=== PATIENT | female | born 1990 | race Caucasian/White ===

== ENCOUNTER 2025-01-09 19:02 | Emergency (ER) | payer OTHER, SELFPAY ==
--- OUTSIDE RECORDS SUMMARY | 2025-01-09 19:05 | XMS_ITS | Encounter Summary ---
Author Organization [facility] Address [address] [place] [id number] Care Team Providers Care Catering Director Name Role Phone Dina Parkinson APRN C.N.PDerrell, M.S. Primary Care Pr ovider Reason for Referral * Outpatient (Routine) - Closed Specialty Diagnoses / Procedures Referred By Yoel coello Referred To Contact Diagnoses Lump In Right Breast Subareolar Procedures BI Breast Diagnostic Bilateral with Tomosynthesis BI Breast Diagnostic Right with Tomosynthesis Dina Parkinson APRN, C.N.P., M.S. [address] [place] [phone] Phone: tel: fax: [facility] Referral ID Status Reason Start Date Expiration Date Visits Re quested Visits Authorized [id number] Closed 11/26/2024 02/26/2026 1 1 STICS SUPPORT Reason for Visit * Outpatient (Routine) - Closed Specialty Diagnoses / Procedures Referred By Yoel coello Referred To Contact Diagnoses Lump In Right Breast Subareolar Procedures BI Breast Diagnostic Bilateral with Tomosynthesis BI Breast Diagnostic Right with Tomosynthesis Dina Parkinson APRN, C.N.P., M.S. [address] [place] [phone] Phone: tel: fax: [facility] Referral ID Status Reason Start Date Expiration Date Visits Re quested Visits Authorized [id number] Closed 11/26/2024 02/26/2026 1 1 Encounter Details Date Type Department Care Team (Latest Contact Info) Description 12/02/2024 6:55 AM LOGISTICS SUPPORT - 12/02/2024 7:35 AM LOGISTICS SUPPORT Hospital Encounter Department of Radiology in [place], [place] [address] [place] [address] Dina Pariknson APRN, C.N.P., M.S. [address] [place] [phone] Lump In Right Breast Subareolar Discharge Disposition: Home or Self Care Social History Tobacco Use Types Packs/Day Years Used Date Smoking Tobacco: Never Smokeless Tobacco: Never Alcohol Use Standard Drinks/Week Comments Yes 2 (1 standard drink = 0.6 oz pur e alcohol) Humiliation, Afraid, Rape, and Kick questionnair e Answer Date Recorded Within the last year, have y ou been afraid of your partner or ex-partner? No 03/10/2023 Within the last year, have y ou been humiliated or emotionally abused in other ways by your partner or ex-partner? No Within the last year, have y ou been kicked, hit, slapped, or otherwise physically hurt by your partner or ex-partner? No 03/10/2023 Within the last year, have y ou been raped or forced to have any kind of sexual activity by your partner or ex-partner? No 03/10/2023 Social Connection and Isolat ion Panel [NHANES] Answer Date Recorded In a typical week, how many times do you talk on the phone with family, friends, or neighbors? Twice a week 06/13/2021 How often do you get togethe r with friends or relatives? Once a week 06/13/2021 How often do you attend chur or rastafari services? More than 4 times per year 06/13/2021 Do you belong to any clubs o r organizations such as buddhism groups, unions, fraternal or athletic groups, or school groups? Yes 06/13/2021 How often do you attend meet ings of the clubs or organizations you belong to? More than 4 times per year 06/13/2021 Are you , , di vorced, , never , or living with a partner? 06/13/2021 AUDIT-C Answer Date Recorded Q1: How often do you have a drink containing alc ohol? 2-3 times a week 06/13/2021 Q2: How many drinks containi ng alcohol do you have on a typical day when you are drinking? 1 or 2 06/13/2021 Q3: How often do you have si x or more drinks on one occasion? Never 06/13/2021 Overall Financial Resource Strain (CARDIA) Answe r Date Recorded How hard is it for you to pa y for the very basics like food, housing, medical care, and heating? Not very hard 03/10/2023 PHQ-2 Answer Date Recorded PHQ-2 Score 0 03/13/2023 [facility] - Occupational Stress Questionnaire Answer Date Recorded Do you feel stress - tense, restless, nervous, or anxious, or unable to sleep at night because your mind is troubled all the time - these days? To some extent 06/13/2021 Exercise Vital Sign Answer Date Recorde d On average, how many days pe r week do you engage in moderate to strenuous exercise (like a brisk walk)? 4 days 03/10/2023 On average, how many minutes do you engage in exercise at this level? 20 min 03/10/2023 Hunger Vital Sign Answer Date Recorded Within the past 12 months, y ou worried that your food would run out before you got the money to buy more. Never true 03/10/20 23 Within the past 12 months, t he food you bought just didn't last and you didn't have money to get more. Never true 03/10/2023 PRAPARE - Transportation Answer Date Re corded In the past 12 months, has l ack of transportation kept you from medical appointments or from getting medications? No 02/27 In the past 12 months, has l ack of transportation kept you from meetings, work, or from getting things needed for daily living? No 03/10/2023 Depression Answer Date Recor ded PHQ-9 Total Score (max 27) 1 03/13 Nutrition Answer Date Recorded On average, how many serving s of fruits and vegetables do you eat per day (serving size is equal to 1 cup or approximately the size of a tennis ball)? 3-5 03/10/2023 Dental Answer Date Recorded Dental: Regular Dentist Yes 10/10/19 Employment Answer Date Recorded Employment status Employed and actively working without restrictions 03/10/2023 Housing Stability Answer Date Recorded What is your living situation today? I have a [facility] place to live 03/10/2023 Education Answer Date Recorded What is the highest level of school you have completed or the highest degree you have received? Bachelor's degree (e.g., BA, AB, BS) 04/08/2019 Comments No Sex and Gender Information Value Date Recorded Sex Assigned at Female 02/25/2018 1:35 PM CDT Legal Sex Female 2:16 PM LOGISTICS SUPPORT Gender Identity Female 02/25/2018 1:35 PM CDT Sexual Orientation Straight 02/25/2018 1: 35 PM CDT documented as of this encounter Medications at Time of Discharge [id number]-asb- C (MOVIPREP) 100-7.5-2.691 gram per packet Drink 1st portion of prep at 6 PM the evening before. 2nd portion must be started 3 hours before and finished 2 hours prior to report time 1 kit 07/23/2023 documented as of this encounter Plan of Treatment Not on file documented as of this encounter Procedures Procedure Name Priority Date/Time Associated Diagnosis Comments BI BREAST DIAGNOSTIC BILATERAL WITH TOMOSYNTHESIS RAD - Routine (most inpatients and all outpatients) 12/02/2024 7:31 AM LOGISTICS SUPPORT Lump In Right Breast Subareolar documented in this encounter Results * BI Breast Diagnostic Bilateral with Tomosynthesis (12/02/2024 7:31 AM LOGISTICS SUPPORT) Anatomical Region Laterality Modality Breast, Breast Imaging RST L OS, Breast Imaging ARZ LOS, Breast Imaging FLA LOS Bilateral Mammography Impressions 12/02/2024 8:14 AM LOGISTICS SUPPORT No mammographic or sonographic findings of malignancy. The palpable area of concern may correspond to a prominent ridge of normal breast tissue. RECOMMENDATION: Clinical Management Findings and recommendations were discussed with the patient by Dr. Almeida. ASSESSMENT: BI-RADS: 1: Negative. Narrative 12/02/2024 8:14 AM LOGISTICS SUPPORT EXAM: BI BREAST DIAGNOSTIC BILATERAL WITH TOMOSYNTHESIS, BI ULTRASOUND BREAST FOCUSED RIGHT INDICATION: Palpable lump COMPARISON: No priors exams were available for comparison. DENSITY: c. The breast(s) are heterogeneously dense, which may obscure small masses. FINDINGS: MAMMOGRAPHY: A palpable skin marker indicates the location of the palpable area of concern in the outer right breast. No suspicious masses, calcifications, or architectural distortion in either breast. ULTRASOUND: Targeted ultrasound of the right breast was performed and the patient directed area of palpable concern. Imaging of the outer right breast was performed. Risk Developer normal images were saved at 10:00, 1 cm from the nipple demonstrating normal fibroglandular breast tissue. There is a prominent ridge of normal breast tissue extending up to the skin, which may account for the palpable finding. No suspicious sonographic findings. On physical examination, the palpable area of concern is soft and mobile. Procedure Note Beny Almeida M.D. - 12/02/2024 EXAM: BI BREAST DIAGNOSTIC BILATERAL WITH TOMOSYNTHESIS, BI ULTRASOUNDBREAST FOCUSED RIGHT INDICATION: Palpable lump COMPARISON: No priors exams were available for comparison. DENSITY: c. The breast(s) are heterogeneously dense, which may obscuresmall masses. FINDINGS: MAMMOGRAPHY: A palpable skin marker indicates the location of the palpablearea of concern in the outer right breast. No suspicious masses,calcifications, or architectural distortion in either breast. ULTRASOUND: Targeted ultrasound of the right breast was performed and thepatient directed area of palpable concern. Imaging of the outer rightbreast was performed. Risk Developer normal images were saved at 10:00, 1cm from the nipple demonstrating normal fibroglandular breast tissue. There is a prominent ridge of normalbreast tissue extending up to the skin, which may account for the palpablefinding. No suspicious sonographic findings. On physical examination, thepalpable area of concern is soft and mobile. IMPRESSION: No mammographic or sonographic findings of malignancy. The palpable areaof concern may correspond to a prominent ridge of normal breast tissue. RECOMMENDATION: Clinical Management Findings and recommendations were discussed with the patient by . ASSESSMENT: BI-RADS: 1: Negative. us Dina Parkinson APRN, C.N.P., M.S. IMG BI PROCEDURE S Final Result documented in this encounter Visit Diagnoses Diagnosis Lump In Right Breast Subareolar documented in this encounter Additional Health Concerns Assessment Noted Time PHQ-9 Depression Total Score: 1 03/13/20 23 1:33 PM CDT documented as of this encounter Care Teams Catering Director Relationship Specialty Start Date End Date Dina Parkinson APRN C.N.Naty, M.S. [address] [place] [phone] PCP - General Internal Medicine 06/15/16 documented as of this encounter
--- OUTSIDE RECORDS SUMMARY | 2025-01-09 19:05 | XMS_ITS | Encounter Summary ---
Author Organization [facility] Address [address] [place] [id number] Care Team Providers Care Dressmaker Garment Fitter Name Role Phone Dina Parkinson APRN, C.N.PDerrell, M.S. Primary Care Pr ovider Reason for Referral * Outpatient (Routine) - Closed Specialty Diagnoses / Procedures Referred By Contac t Referred To Contact Diagnoses Lump In Right Breast Subareolar Procedures BI Ultrasound Breast Focused Right Dina Parkinson APRN, C.N.P., M.S. [address] [place] [phone] Phone: tel: fax: [facility] Referral ID Status Reason Start Date Expiration Date Visits Re quested Visits Authorized [id number] Closed 12/02/2024 03/04/2026 1 1 X RAY DEVELOPER Reason for Visit * Outpatient (Routine) - Closed Specialty Diagnoses / Procedures Referred By Contac t Referred To Contact Diagnoses Lump In Right Breast Subareolar Procedures BI Ultrasound Breast Focused Right Dina Parkinson APRN C.N.P., M.S. [address] [place] [phone] Phone: tel: fax: [facility] Referral ID Status Reason Start Date Expiration Date Visits Re quested Visits Authorized [id number] Closed 12/02/2024 03/04/2026 1 1 Encounter Details Date Type Department Care Team (Latest Contact Info) Description 12/02/2024 7:36 AM X RAY DEVELOPER - 12/02/2024 11:59 PM X RAY DEVELOPER Hospital Encounter Department of Radiology in [place], [place] [address] [place] [address] Dina Parkinson APRN, C.N.P., M.S. [address] [place] [address] Lump In Right Breast Subareolar Discharge Disposition: [...] 06/13/2021 How often do you attend chur ch or lutheran services? More than 4 times per year 06/13/2021 Do you belong to any clubs o r organizations such as mandaen groups, unions, fraternal or athletic groups, or [...] Answer Date Recorded PHQ-2 Score 0 03/13/2023 [facility] - Occupational Stress Questionnaire Answer Date [...] your living situation today? I have a [facility] place to live 03/10/2023 Education Answer Date Recorded What is the highest level of school you have completed or the highest degree you have received? Bachelor's degree (e.g., BA, AB, BS) 04/08/2019 Comments No Sex and Gender Information Value Date Recorded Sex Assigned at Female 02/25/2018 1:35 PM CDT Legal Sex Female 2:16 PM X RAY DEVELOPER Gender Identity Female 02/25/2018 1:35 PM CDT Sexual Orientation Straight 02/25/2018 1: 35 PM CDT documented as of this encounter Medications at Time of Discharge [id number]-asb- C (MOVIPREP) 100-7.5-2.691 gram per packet Drink 1st portion of prep at 6 PM the evening before. 2nd portion must be started 3 hours before and finished 2 hours prior to report time 1 kit 07/23/2023 documented as of this encounter Plan of Treatment Not on file documented as of this encounter Procedures Procedure Name Priority Date/Time Associated Diagnosis Comments BI ULTRASOUND BREAST FOCUSED RIGHT RAD - Routine (most inpatients and all outpatients) 12/02/2024 7:58 AM X RAY DEVELOPER Lump In Right Breast Subareolar documented in this encounter Results * BI Ultrasound Breast Focused Right (12/02/2024 7:58 AM X RAY DEVELOPER) Anatomical Region Laterality Modality Breast, Breast Imaging RST L OS, Breast Imaging ARZ LOS, Breast Imaging FLA LOS Right Ultrasound Impressions 12/02/2024 8:14 AM X RAY DEVELOPER No mammographic or sonographic findings of malignancy. The palpable area of concern may correspond to a prominent ridge of normal breast tissue. RECOMMENDATION: Clinical Management Findings and recommendations were discussed with the patient by Dr. Almeida. ASSESSMENT: BI-RADS: 1: Negative. Narrative 12/02/2024 8:14 AM X RAY DEVELOPER EXAM: BI BREAST DIAGNOSTIC BILATERAL WITH TOMOSYNTHESIS, [...] of the outer right breast was performed. Hand Ii Thermal Cutter normal images were saved at 10:00, 1 [...] Imaging of the outer rightbreast was performed. Hand Ii Thermal Cutter normal images were saved at 10:00, 1cm [...] documented as of this encounter Care Teams Dressmaker Garment Fitter Relationship Specialty Start Date End Date Dina Parkinson APRN, C.N.P., M.S. [address] [place] [phone] PCP - General Internal Medicine 06/15/16 documented as of this encounter
--- OUTSIDE RECORDS SUMMARY | 2025-01-09 19:06 | XMS_ITS | Encounter Summary ---
Author Organization [facility] Address [address] [place] [address] Care Team Providers Care Casino Worker Name Role Phone Dina Parkinson APRN, C.N.P., M.S. Primary Care Pr ovider Encounter Details Date Type Department Care Team (Late st Contact Info) Description 08/01/2014 Historical Ophthalmology RST OPH Dorene Bronson O.D. [address] [place] [phone] Social History Tobacco Use Types Packs/Day Years Used Date Smoking Tobacco: Never Assessed Comments Unknown Sex and Gender Information Value Date Recorded Sex Assigned at Female 02/25/2018 1:35 PM CDT Legal Sex Female 2:16 PM INSPECTOR TIMERS Gender Identity Female 02/25/2018 1:35 PM CDT Sexual Orientation Straight 02/25/2018 1: 35 PM CDT documented as of this encounter Progress Notes * Dorene Park O.D. - 08/01/2014 5:53 PM CST Contact Lens Exam MULTI-VISIT DOCUMENT This document contains multiple patient visits and is available for review in Document Viewer. CDM Reports - EYECL Id: [id number] Status: Fnl documented in this encounter Plan of Treatment Not on file documented as of this encounter Visit Diagnoses Not on filedocumented in this encounter Additional Health Concerns Infection Onset Date Last Indicated Resolved Time COVID19 Pending 04/13/2020 04/13/2020 04/14/2020 7 :09 PM CDT COVID19 Pending 06/09/2020 06/09/2020 06/10/2020 6 :25 PM CDT COVID19 Pending 06/02/2021 06/02/2021 06/02/2021 6 :11 PM CDT COVID19 Pending 08/22/2021 08/22/2021 08/22/2021 1 1:19 PM INSPECTOR TIMERS COVID19 Pending 08/27/2021 08/27/2021 08/27/2021 4 :33 PM INSPECTOR TIMERS COVID19 Pending 10/06/2021 10/06/2021 10/06/2021 8 :50 PM INSPECTOR TIMERS COVID19 10/06/2021 10/06/2021 10/26/2021 5:46 AM INSPECTOR TIMERS Assessment Noted Time PHQ-9 Depression Total Score: 0 02/27/20 13 10:59 AM CDT documented as of this encounter Care Teams Casino Worker Relationship Specialty Start Date End Date Dina Parkinson APRN, C.N.P., M.S. [address] [place] [phone] PCP - General Internal Medicine 06/15/16 documented as of this encounter
--- OUTSIDE RECORDS SUMMARY | 2025-01-09 19:06 | XMS_ITS | Clinical Summary ---
Author Organization [facility] Address [address] [place] [address] Care Team Providers Care Ct Tech Name Role Phone Dina Parkinson APRN, C.N.P., M.S. Primary Care Pr ovider Source Comments Patient records contain information from all sites at [facility]. For routine questions regarding patient records, call [phone] during business hours, M-F 8:00 AM - 5:00 PM Central Time. Record requests for emergency care only can be directed to [phone] at any time.[facility] Allergies No known active allergies Medications * This document contains information received from the source organization and may not represent a complete record from that organization. [id number] b-[id number] (MOVIPREP) 100-7.5-2.691 gram per packet Drink 1st portion of prep at 6 PM the evening before. 2nd portion must be started 3 hours before and finished 2 hours prior to report time 1 kit 07/23/2023 Active Active Problems Patient Care Coordination No te Formatting of this note migh t be different from the original. Repeat C/S scheduled for 07/10--approval from Dr. Sanford Problem Noted Date Diagnosed Date Anemia Iron Deficiency 04/02/2023 Maintenance Health Adult 03/14/2023 Assessment & Plan (03/14/2023 7:57 AM CDT): --Well exam today. Activities without restrictions. --Age appropriate health maintenance/screening measures are reviewed with the patient. --Immunizations discussed and deferred today --Incorporate healthy-eating patterns including: A variety of vegetables -- dark green, red and orange, legumes (beans and peas) Fruits, especially whole fruits Grains, at least half of which are whole grains Fat-free or low-fat dairy, including milk, yogurt and cheese, and fortified soy beverages A variety of protein foods, including seafood, lean meats and poultry, eggs, legumes (beans and peas), and nuts, seeds and soy products Oils, including those from plants, and those that occur naturally in nuts, seeds, seafood, olives and avocados Recommended future preventive services: --Annual mammograms to start at age 40. --Pap smear every 5 years with HPV cotest -- Blood pressure checks at least every two years. --Lipid checks every 3-5 years after age 35. --Colorectal screening every ten years to start at age 45. Screening and exam should be done prior for any change in bowel habits or symptoms. --Annual influenza vaccinations are encouraged. --Tetanus boosters every ten years. --Fasting glucose screening for Diabetes every 3 years after age 35. Fatigue 03/14/2023 Assessment & Plan (03/14/2023 8:02 AM CDT): As it has been many years as she has had screening labs, will proceed with CBC, Vitamin D, TSH and basic metabolic panel due to increased fatigue. I will contact her with the results. COVID-19 Infection 10/08/2021 Overview (10/08/2021): Positive 10/06/2021 Hernia 06/14/2021 Overview (06/14/2021): Added automatically from request for surgery [id number] Anxiety Generalized Disorder 09/07/2020 Depression Major One Episode Moderate 09/07/2020 Assessment & Plan (10/04/2020 1:15 PM PATCHER): PHQ-9 score is 2 which has decreased from 11 one month ago. ENDER-7 score is 4, which is decreased from 11 one month ago. She has tolerated the Zoloft 50 mg well and will plan to continue. Plan to follow-up by portal in a couple months. She will reach out to myself or her PCP if symptoms worsen. Assessment & Plan (09/07/2020 2:00 PM PATCHER): PHQ-9 score is 11 and ENDER score is 11. Given long duration of worsening mood symptoms, Alexandra is interested in starting an antidepressant medication for management. We reviewed benefits and side effects of SSRI medications, and decided to initiate Zoloft. Plan to start Zoloft 25 mg daily for 1 week, then increase to 50 mg daily. Will plan for follow-up in approximately 1 month. Also provided information on self cares for anxiety and depression. Hypothyroidism On Replacement 09/01/2014 Overview (06/01/2018): TSH 1.1 on 28w labs. Continue 75 mcg daily of synthroid (pre- dose unchanged). Recheck next visit. Assessment & Plan (06/29/2018 7:52 PM CDT): Repeat TSH today, collected after appt. Assessment & Plan (06/01/2018 3:58 PM CDT): - TSH 1.1 on 28w labs. Continue 75 mcg daily of synthroid (pre- dose unchanged). Recheck next visit. Assessment & Plan (04/22/2018 2:29 PM CDT): TSH today: 1.1 Continue 75mcg daily of synthroid Resolved Problems Problem Noted Date Diagnosed Date Resolved Date Anxiety 09/07/2020 09/07/2020 Section Delivery 07/09/2018 Overview (07/10/2018): The patient was admitted to the [facility] for a scheduled repeat cesearean. Her was complicated by hypothyroidism. She had a scheduled repeat delivery and bilateral tubal ligatoin, delivering a liveborn male with weight of 3.49 kg . Gestational age: 39w0d. occurred: 07/10/2018 , 11:24 AM Both mother and baby were in stable condition at the conclusion of the procedure. When the patient met appropriate criteria, she was transferred to the floor. The remainder of her course was uncomplicated. She received her care at [facility] with Dr. Anderson. Varicose Vein Leg With 05/19/2018 09/07/2020 Overview (06/01/2018): Has vulvar and LE superficial varicosities. Denies any signs/symptoms of DVT. Rx for compression stockings provided. Assessment & Plan (06/01/2018 3:56 PM CDT): - Has vulvar and LE superficial varicosities. Denies any signs/symptoms of DVT. - Would like to try compression stockings. Rx provided. Varicosity Vulva 04/22/2018 1 11/08/2019 Overview (04/22/2018): Patient has increased pain/discomfort when she works/stands for long periods. Discussed taking regular breaks and limiting the amount of time she is on her feet during the day. Will send work restriction note. Assessment & Plan (06/29/2018 7:53 PM CDT): -No new concerns/stable. Continues to use support hose when at work. Assessment & Plan (04/22/2018 2:31 PM CDT): Patient has increased pain/discomfort when she works/stands for long periods. Discussed taking regular breaks and limiting the amount of time she is on her feet during the day. Will send work restriction note. Maternal Care For Low Transv erse Scar From Previous Delivery 02/24/2018 09/07/2020 Overview (06/29/2018): History of two previous Cesareans, desires repeat with BTL. 39 0/7 weeks is 07/10/18. Elective repeat scheduled on 07/10 at 39 0/7 weeks Assessment & Plan (06/29/2018 7:53 PM CDT): -Elective repeat w/BTL scheduled on 07/10 at 39 0/7 weeks Assessment & Plan (06/01/2018 3:55 PM CDT): - Will schedule repeat CS next visit. Assessment & Plan (04/22/2018 11:20 AM CDT): Two prior cesareans Desires repeat with BTL Prior Premature Rupt ure Membrane Personal History 05/08/2016 09/07/2020 Overview (02/24/2018): Discussed with Dr. Govea. Given term garcia in second without 17OHP and PTB with twin gestation, cervical length screening and 17OHP not recommended. Alexandra is in agreement with this plan. Assessment & Plan (04/22/2018 11:22 AM CDT): delivery associated with twin gestation Cervical length screening and 17OHP not recommended for this Care And Lactating 06/15/2015 09/07/2020 Assessment & Plan (06/29/2018 7:52 PM CDT): -GBS collected today -Bedside US showed Cephalic presentation, EFW 3100 g Assessment & Plan (04/22/2018 2:30 PM CDT): Patient reports pubic symphysis pain as well as pain associated with vulvar varicosities. Discussed use of belt as well as recommendations for staying off her feet for extended periods of time. Will send work restriction note. Encounters Date Type Department Care Team Description 12/02/2024 7:36 AM PATCHER - 12/02/2024 11:59 PM [facility] Hospital Encounter Department of Radiology in [place], [place] [address] [place] [address] Dina Parkinson APRN, C.N.P., M.S. Lump In Right Breast Subareolar Discharge Disposition: Home or Self Care 12/02/2024 6:55 AM PATCHER - 12/02/2024 7:35 AM [facility] Hospital Encounter Department of Radiology in [place], [place] [address] [place] [address] Dina Parkinson APRN, C.N.P., M.S. Lump In Right Breast Subareolar Discharge Disposition: Home or Self Care from Last 3 Months Immunizations Immunization Administration Dates Next Due 4vHPV (discontinued) 01/27/2009,08/30/2008,07/08 HPV, Unspecified 01/27/2009,08/30/2008, 8 HepB, Unspecified 12/06/2002,05/12/2002,04/27/19 98 Influenza Split 06/29/2016 Influenza, Injectable, Mdck, Preservative Free, Quadrivalent 09/07/2022,07/12/2018 Influenza, Unspecified 07/22/2017,07/22/2016 MMR 04/27/1998,09/09/1991 OPV 04/07/1995, 2,1990,1989 SARS-COV-2 (COVID-19) - PFIZ ER (Discontinued)(12 years or older) 06/27/2021,10/25/2020,10/03/2020 Td (Adult), adsorbed 05/13/2003 Td, (Adult) Unspecified 05/13/2003 Tdap 05/19/2018,07/11/2016,07/08/2008 SINTIA 07/08/2008,04/07/1995 influenza trivalent high dos e (HD)(PF) 06/29/2016 influenza trivalent vaccine (6 months and older)(PF) 08/24/2013,07/20/2012,07/24/2011,2009 influenza vaccine quad (FLUZONE/FLUARIX) (6 months and older)(PF) 08/09/2021,07/21/2020,07/28/2019,2014,08/02/2014 Family History Medical History Relation Name Comments No Known Problems Brother 1 No Known Problems Brother 2 Alcohol abuse Father Rigo Anxiety disorder Father Rigo Depression Father Rigo Drug abuse Father Rigo Hyperlipidemia Father Rigo Hypertension Father Rigo Psychiatric Father Rigo Lung cancer Maternal Grandmother Orquidea Hyperlipidemia Mother Guillermina Migraines Mother Guillermina Thyroid disease Mother Guillermina Ulcerative colitis Mother Guillermina Alcohol abuse Paternal Grandfather Oscar Dementia Paternal Grandfather Oscar Hyperlipidemia Paternal Grandfather Oscar Hypertension Paternal Grandfather Oscar Stroke Paternal Grandfather Oscar Arthritis Paternal Grandmother Nita Breast cancer Paternal Grandmother Nita Relation Name Status Comments Brother 1 Alive Brother 2 Alive Father Rigo Alive Maternal Grandfather Maternal Grandmother Orquidea Mother Guillermina Alive Paternal Grandfather Oscar Paternal Grandmother Nita Alive Social History Tobacco Use Types Packs/Day Years [...] How often do you attend chur or shinto services? More than 4 times per year 06/13/2021 Do you belong to any clubs o r organizations such as gnosticism groups, unions, fraternal or athletic groups, or [...] Answer Date Recorded PHQ-2 Score 0 03/13/2023 [facility] - Occupational Stress Questionnaire Answer Date Recorded [...] money to buy more. Never true 03/10/20 Within the past 12 months, t he [...] PM CDT Legal Sex Female 2:16 PM PATCHER Gender Identity Female 02/25/2018 1:35 PM CDT Sexual Orientation Straight 02/25/2018 1: 35 PM CDT Last Filed Vital Signs Vital Sign Reading Time Taken Comments Blood Pressure 114/65 07/30/2023 1:50 PM CDT Pulse 87 07/30/2023 1:50 PM CDT Temperature 36.8 C (98.2 F) 07/30/2023 1:50 PM CDT Respiratory Rate 14 07/30/2023 1:50 PM CDT Oxygen Saturation 99% 07/30/2023 1:50 PM CDT Inhaled Oxygen Concentration - - Weight 49 kg (108 lb 0.4 oz) 03/13/2023 1:34 PM CDT Height 160 cm (5' 3) 07/30/2023 11:44 AM CDT Body Mass Index 19.46 03/13/2023 1:34 PM CDT Plan of Treatment Health Maintenance Due Date Last Done Comments CT Colonography 1990 Cologuard 1990 Hepatitis C Screening 1990 Depression Monitoring (PHQ-9) 07/13/2023 03/13/2023 COVID-19 Vaccine ( season) 2024 06/27/2021, 10/25/2020, 10/03/2020 Influenza Vaccine (#1) 2024 , 09/07/2022, 08/09/2021, Additional history exists Depression Monitoring (PHQ-9 for quality tracking) 09/29/2024 Cervical/Vaginal Cancer Screening 03/13/2028 03/13/2023, 03/13/2023, 04/08/2019, Additional history exists DTaP,Tdap,and Td Vaccines (5 - Td or Tdap) 05/19/2028 05/19/2018, 07/11/2016, 07/08/2008, Additional history exists Colonoscopy 07/30/2028 07/30/2023, 07/30/2023 Colorectal Cancer Surveillance 07/30/2028 IPV Vaccines Completed 04/07/1995, 09/1991, 1990, Additional history exists Hepatitis B Vaccines Completed 12/06/2002, 05/12/2002, 04/27/1998 Varicella Vaccines Completed 07/08/2008, 04/07/1995 HPV Vaccines Completed 01/27/2009, 09/2008, 08/30/2008, Additional history exists HIV Screening Completed 12/17/2017, 01/28, 06/28/2015 Pneumococcal vaccine (0-49 years) Aged Out No longer eligible based on patient's age to complete this topic Procedures Procedure Name Priority Date/Time Associated Diagnosis Comments BI ULTRASOUND BREAST FOCUSED RIGHT RAD - Routine (most inpatients and all outpatients) 12/02/2024 7:58 AM PATCHER Lump In Right Breast Subareolar BI BREAST DIAGNOSTIC BILATERAL WITH TOMOSYNTHESIS RAD - Routine (most inpatients and all outpatients) 12/02/2024 7:31 AM PATCHER Lump In Right Breast Subareolar COLONOSCOPY Routine 07/30/2023 12:44 PM CDT Anemia Iron Deficiency HPV WITH GENOTYPING, PCR, THINPREP Routine 03/13/2023 2:22 PM CDT HIV-1/-2 AG AND AB SCREEN Routine 12/17/2017 9:45 AM CDT from Last 3 Months or Most Recently Relevant to Health Maintenance Results * BI Ultrasound Breast Focused Right (12/02/2024 7:58 AM PATCHER) Anatomical Region Laterality Modality Breast, Breast Imaging RST L OS, Breast Imaging ARZ LOS, Breast Imaging FLA LOS Right Ultrasound Impressions 12/02/2024 8:14 AM PATCHER No mammographic or sonographic findings of malignancy. The palpable area of concern may correspond to a prominent ridge of normal breast tissue. RECOMMENDATION: Clinical Management Findings and recommendations were discussed with the patient by Dr. Almeida. ASSESSMENT: BI-RADS: 1: Negative. Narrative 12/02/2024 8:14 AM PATCHER EXAM: BI BREAST DIAGNOSTIC BILATERAL WITH TOMOSYNTHESIS, [...] of the outer right breast was performed. [employer] normal images were saved at 10:00, 1 [...] Imaging of the outer rightbreast was performed. [employer] normal images were saved at 10:00, 1cm [...] Negative. us Dina Parkinson APRN, C.N.P., M.S. IM BI PROCEDURE S Final Result * BI Breast Diagnostic Bilateral with Tomosynthesis (12/02/2024 7:31 AM PATCHER) Anatomical Region Laterality Modality Breast, Breast Imaging RST L OS, Breast Imaging ARZ LOS, Breast Imaging FLA LOS Bilateral Mammography Impressions 12/02/2024 8:14 AM PATCHER No mammographic or sonographic findings of malignancy. The palpable area of concern may correspond to a prominent ridge of normal breast tissue. RECOMMENDATION: Clinical Management Findings and recommendations were discussed with the patient by Dr. Almeida. ASSESSMENT: BI-RADS: 1: Negative. Narrative 12/02/2024 8:14 AM PATCHER EXAM: BI BREAST DIAGNOSTIC BILATERAL WITH TOMOSYNTHESIS, [...] of the outer right breast was performed. [employer] normal images were saved at 10:00, 1 [...] Imaging of the outer rightbreast was performed. [employer] normal images were saved at 10:00, 1cm [...] patient by . ASSESSMENT: BI-RADS: 1: Negative. Amor Lind APRN.N.Naty, M.S. IMG BI PROCEDURE S Final Result * HPV with Genotyping, PCR, ThinPrep (03/13/2023 2:22 PM CDT) Specimen Source Cervix/Endoc ervix 03/18/2023 8:46 AM CDT DTL HPV High Risk type 16, PCR Negative Negative 03/18/2023 8:46 AM CDT DTL HPV High Risk type 18, PCR Negative Negative 03/18/2023 8:46 AM CDT DTL HPV other High Risk types, PCR Negative Negative 03/18/2023 8:46 AM CDT DTL Comment: The following Other High Risk HPV types were not detected: 31, 33, 35, 39, 45, 51, 52, 56, 58, 59, 66, and 68 This test was ordered in the context of a [facility] RN DOCUMENT IMPROVEMENT SPECIALIST Cytology case; this result should be interpreted within the context of the RN DOCUMENT IMPROVEMENT SPECIALIST cytology report. ----ADDITIONAL INFORMATION---- Testing was performed using the lea HPV assay ([employer] 03/13/2023 2:22 PM CDT 03/13/2023 4:53 PM CDT Amor Lind APRN.N.P., M.S. LAB MICROBIOLOGY - GENERAL ORDERABLES Final Result [facility] [address] [place] [address], [facility] DTL [address] [place] [address] * HIV-1/-2 Ag and Ab Screen (12/17/2017 9:45 AM CDT) HIV-1/-2 Ag and Ab Screen, S Negative Negative [facility] Comment: Negative result does not rule out HIV infection. If acute HIV infection is suspected in a high-risk individual, submit plasma specimen for HIV-1 RNA quantification test (HIVDQ) and/or HIV-2 DNA/RNA test (FHV2Q). 12/17/2017 9:45 AM CDT 12/17/2017 9:45 AM CDT us Nidhi Tomlinson APRN, CNM LAB MICROBIOLOGY - BLOO D ORDERABLES Final Result [facility] [address] [place] [address], [facility] from Last 3 Months or Most Recently Relevant to Health Maintenance Insurance [employer] [place] Care Teams Ct Tech Relationship Specialty Start Date End Date Dnia Parkinson APRN, C.N.P., M.S. [address] [place] [phone] PCP - General Internal Medicine 06/15/16
--- OUTSIDE RECORDS SUMMARY | 2025-01-09 19:06 | XMS_ITS | Encounter Summary ---
Author Organization [facility] Address [address] [place] [address] Care Team Providers Care Soft Water Mechanic Name Role Phone Dina Parkinson APRN, C.N.P., M.S. Primary Care Pr ovider Encounter Details Date Type Department Care Team (Late st Contact Info) Description 08/01/2014 Historical Ophthalmology RST OPH Dorene Bronson O.D. [address] [place] [address] Social History Tobacco Use Types Packs/Day Years Used Date Smoking Tobacco: Never Assessed Comments Unknown Sex and Gender Information Value Date Recorded Sex Assigned at Female 02/25/2018 1:35 PM CDT Legal Sex Female 2:16 PM WEB UI DEVELOPER Gender Identity Female 02/25/2018 1:35 PM CDT Sexual Orientation Straight 02/25/2018 1: 35 PM CDT documented as of this encounter Progress Notes * Dorene Park O.D. - 08/01/2014 5:16 PM CST Eye General CHIEF COMPLAINT General exam HISTORY OF PRESENT ILLNESS Sep 2011 Patient wears distance only eyeglasses 50% time, soft contacts 50% of the time. Patient is unsure of how often she replaces. Rx seems stable. No eye pain, flashes or double; has floaters - maybe I see them more. IMPRESSION / REPORT / PLAN #1 Refractive error (myopic astigmatism). Plan: spectacle prescription (Refraction 1) given. RTC 2 years or prn. DIAGNOSIS #1 Refractive error (myopic astigmatism). CDM Reports - EYEGEN Id: [id number] Status: Fnl documented in this encounter Plan [...] Pending 08/22/2021 08/22/2021 08/22/2021 1 1:19 PM WEB UI DEVELOPER COVID19 Pending 08/27/2021 08/27/2021 08/27/2021 4 :33 PM WEB UI DEVELOPER COVID19 Pending 10/06/2021 10/06/2021 10/06/2021 8 :50 PM WEB UI DEVELOPER COVID19 10/06/2021 10/06/2021 10/26/2021 5:46 AM WEB UI DEVELOPER Assessment Noted Time PHQ-9 Depression Total Score: 0 02/27/20 13 10:59 AM CDT documented as of this encounter Care Teams Soft Water Mechanic Relationship Specialty Start Date End Date Dina Parkinson APRN, C.N.P., M.S. [address] [place] [phone] PCP - General Internal Medicine 06/15/16 documented as of this encounter
[2025-01-09 19:13] VITALS: BP 135/81; PULSE 70; RESP 16; TEMP 36.7; O2SAT 98; BMI 19.5
--- NOTE | 2025-01-09 19:22 | ED_ITS ---
HPI - Abdominal Pain General Time Seen by Provider: 19:22 Date Seen: 01/09/25 Chief Complaint: Abdominal Pain Stated Complaint: upper right abdominal pain Time Seen by Provider: 01/09/25 19:04 Source: patient and RN notes reviewed Mode of arrival: ambulatory Limitations: no limitations History of Present Illness HPI narrative: This 34-year-old female is coming in with concern of epigastric to right upper quadrant abdominal pain. She was on a bike ride when it started bothering her. She has felt a little nauseated from it but no vomiting. She does follow a william iac diet, avoids gluten as she states it just gives her generalized inflammation. She took a couple bites of something this morning that she thought maybe had gluten in it but this is not her typical response. The pain is starting to let up now. She really has not found anything to make it better worse. She has a history of a ventral hernia from her pregnancies, she states that she can usually press that back in in the central upper abdominal area and will feel better. It does not feel like that. She has had a tubal ligation, 3 prior C-sections but no other abdominal surgeries. There has been no urinary changes, no fevers or chills. They note there was a lot of bowel inflammatory family history issues but no known appendicitis or gallbladder issues. Related Data Allergies Allergy/AdvReac Type Severity Reaction Status Date / Time No Known Drug Allergies Allergy Verified 01/09/25 20:15 Review of Systems Status of ROS Reports: 6 or more systems reviewed and unremarkable except as noted in History and below PFSH PFSH Social History Smoking Status: Never smoker Do you use any of these nicotine containing products: None Second hand tobacco smoke exposure: No How often do you have a drink containing alcohol: never How often do you have six or more drinks on one occasion: Never AUDIT-C Alcohol total score: 0 Non-prescribed substance use: denies use service: No Exam Const: Vital Signs, click to edit/add: Vital Signs - 24 hr 01/09/25 19:13 Temperature 98.1 F Pulse Rate [Pulse Oximeter] 70 Respiratory Rate 16 Blood Pressure [Ri ght Upper Arm] 135/81 Pulse Oximetry 98 Oxygen Delivery Me thod Room Air This 34-year-old female is alert, interactive, no apparent distress. Documenting provider has reviewed patient's vital signs: yes Course Course ED Course: Will proceed with CT imaging to rule out acute intra-abdominal pathology. Full complement of labs. She is feeling better, declines any need for any pain or nausea medicines. She will let us know if this changes. Could be symptoms of intermittent ventral hernia bothering her, possibility of pancreatic or gallbladder issues. Could be small bowel. Will use CT imaging for further evaluation. She understands that we may need to use ultrasound if this is pointing more towards potential gallbladder pathology. Reevaluation(s) Time of Reevaluation #1: 21:15 Reevaluation #1: Reviewed patient's normal laboratory evaluation. 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 Would have her follow up with General surgery. She started feeling better before going to CT. There is no strangulated ventral hernia. Vital Signs Vital signs: Initial Vital Signs Temperature 98.1 F 01/09/25 19:13 Temperature Source Temporal Artery Scan 01/09/25 19:13 Pulse Rate 70 01/09/25 19:13 Respiratory Rate 16 01/09/25 19:13 Blood Pressure 135/81 01/09/25 19:13 Blood Pressure Mean 99 01/09/25 19:13 Blood Pressure Position Sitting 01/09/25 19:13 Pulse Oximetry 98 01/09/25 19:13 Oxygen Delivery Method Room Air 01/09/25 19:13 Vital Signs Temperature 98.1 F 01/09/25 19:13 Pulse Rate 70 01/09/25 19:13 Respiratory Rate 16 01/09/25 19:13 Blood Pressure 135/81 01/09/25 19:13 Pulse Oximetry 98 01/09/25 19:13 Oxygen Delivery Method Room Air 01/09/25 19:13 Temperature 98.1 F 01/09/25 19:13 Pulse Rate 70 01/09/25 19:13 Respiratory Rate 16 01/09/25 19:13 Blood Pressure 135/81 01/09/25 19:13 Pulse Oximetry 98 01/09/25 19:13 Oxygen Delivery Method Room Air 01/09/25 19:13 MDM - Abdominal Pain Lab Data Attestation: I reviewed the patient's lab results. Labs: Lab Results 01/09/25 01/09/25 Range/Units 19:20 19:35 WBC 8.14 (4.50-11.00) K/uL RBC 4.68 (4.00-5.20) m/uL Hgb 12.2 (12.0-16.0) gm/dL Hct 37.2 (33.0-51.0) % MCV 80 (80-100) fL MCH 26 (26-34) pg MCHC 33 (32-36) gm/dL RDW Coeff of Chris 13.9 (11.5-15.5) % Plt Count 314 (140-440) K/uL Neut % (Auto) 66.1 (42.0-72.0) % Lymph % (Auto) 25.1 (20-44) % Cross % (Auto) 6.6 (0.0-11.0) % Eos % (Auto) 1.4 (0.0-7.0) % Baso % (Auto) 0.6 (0.0-3.0) % Neut # (Auto) 5.38 (1.7-7.0) K/uL Lymph # (Auto) 2.04 (0.90-2.90) K/uL Cross # (Auto) 0.50 (0.00-0.90) K/UL Eos # (Auto) 0.11 (0.00-0.50) K/uL Baso # (Auto) 0.05 (0.00-0.30) K/uL Abs Immat Gran (auto) 0.02 (0.00-0.30) K/uL Imm/Tot Granulo (auto) 0.2 % Sodium 138 (135-149) mmol/L Potassium 3.4 L (3.6-5.1) mmol/L Chloride 104 (96-114) mmol/L Carbon Dioxide 20 (20-32) mmol/L Anion Gap 14 (7-15) mEq/L BUN 13 (5-24) mg/dL Creatinine 0.6 (0.5-1.5) mg/dL Estimated Creat Clear 104.06 Estimated GFR 121 ml/min Glucose 102 (60-115) mg/dL Lactate 1.2 (0.5-1.9) mmol/L Calcium 9.0 (8.4-10.6) mg/dL Total Bilirubin 0.3 (0.1-1.5) mg/dL Direct Bilirubin 0.2 (0.0-0.5) mg/dL AST 34 (12-35) U/L ALT 24 (4-35) U/L Alkaline Phosphatase 68 (40-150) U/L C-Reactive Protein < 0.5 L (0.5-1.0) mg/dL Total Protein 7.7 (6.0-8.3) g/dL Albumin 4.9 (3.3-5.0) g/dL Lipase 139 (23-300) U/L Urine Color Yellow (Yellow) Urine Appearance Clear (Clear) Urine pH 6.0 (5.0-8.5) Ur Specific [place] 1.010 (1.000-1.030) Urine Protein Negative (Negative) Urine Glucose (UA) Negative (Negative) Urine Ketones Negative (Negative) Urine Blood Negative (Negative) Urine Nitrite Negative (Negative) Urine Bilirubin Negative (Negative) Urine Urobilinogen 0.2 (0.2-1.0) Ur Leukocyte Esterase Negative (Negative) Urine RBC 0-2 (0-2) Urine WBC 0-2 (0-5) Ur Squamous Epith Cells Few (None-Few) Urine Bacteria Few A (None) Imaging Data CT scan - abdomen: Attestation: I have reviewed the pertinent imaging results. Radiologist's impression: Patient: MARK LONG Facility:?[facility] Patient ID:?[id number] Site Patient ID:?[id number]. Site :?1990 Study:?CT-Abdomen/Pelvis 54CC ISOVUE 370-01/09/2025 8:18:02 PM Ordering Physician:?Dwain Aguilar Final Report: INDICATION: Epigastric pain. TECHNIQUE: CT abdomen and pelvis acquired with 54 cc Isovue 370 IV contrast. COMPARISON: None. FINDINGS: Lower chest: Unremarkable. Liver: Unremarkable. Normal in size and attenuation. No suspicious masses. Gallbladder and bile ducts: Unremarkable. No stones or inflammation. No biliary dilatation. Pancreas: Unremarkable. No mass or inflammation. Spleen: Unremarkable. Normal in size. No masses. Adrenal glands: Unremarkable. No nodules. Kidneys: Unremarkable. No suspicious masses, stones, or hydronephrosis. GI tract: Cystic structure measuring 1.3 cm anterior to a loop of small bowel without appreciable inflammatory changes (). Normal in caliber. No sign of mass or inflammation. Normal appendix (). Vasculature: Abdominal aorta is normal in caliber. Mesenteric arteries are patent. Lymph nodes: No lymphadenopathy. Peritoneum/Abdominal Wall: Small fat containing ventral hernia (). No sign of mass or infiltration. No free air or significant free fluid. Pelvis: Bladder is unremarkable. Reproductive organs are unremarkable. Bones: Unremarkable for age. IMPRESSION: 1. No definite acute findings to explain the patient`s symptoms. 2. Small fat containing ventral hernia. 3. 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 Please note that all CT scans at this facility use dose modulation, iterative reconstruction, and/or weight-based dosing when appropriate to reduce radiation dose to as low as reasonably achievable. Dictated by Agustin Cuevas MD @ 01/09/2025 9:02:33 PM (Electronic Signature) Discharge Plan Discharge Clinical Impression: Acute upper abdominal pain Patient Disposition: Home, Self-Care Condition: Stable Instructions: Acute Abdominal Pain (ED) Additional Instructions: Recommend follow-up with General surgery to review the CT findings. If you have recurrent severe abdominal pain as you are having earlier, do recommend return for further evaluation. Otherwise, can resume activity and diet as tolerated. Activity Level: Activity as Tolerated Follow Up/Referrals: Provider,Not a Local [Primary Care Provider] - Stand Alone Forms: AppLayer Info Instructions
[2025-01-09 19:27] LABS: Appearance Urine Clear (Clear); Bilirubin Urine Negative (Negative); Blood Urine Negative (Negative); Color Urine Yellow (Yellow); Glucose Urine Negative (Negative); Ketones Urine Negative (Negative); Leukocyte Esterase Urine Negative (Negative); Nitrite Urine Negative (Negative); Protein Urine Negative (Negative); Urobilinogen Urine 0.2 (0.2-1.0)
--- NOTE | 2025-01-09 19:28 | CRLHL7_ITS ---
For Patients: As a result of the Century Cures Act, medical imaging exams and procedure reports are released immediately into your electronic medical record. You may view this report before your referring provider. If you have questions, please contact your health care provider. INDICATION: Epigastric pain. TECHNIQUE: CT abdomen and pelvis acquired with 54 cc Isovue 370 IV contrast. COMPARISON: None. FINDINGS: Lower chest: Unremarkable. Liver: Unremarkable. Normal in size and attenuation. No suspicious masses. Gallbladder and bile ducts: Unremarkable. No stones or inflammation. No biliary dilatation. Pancreas: Unremarkable. No mass or inflammation. Spleen: Unremarkable. Normal in size. No masses. Adrenal glands: Unremarkable. No nodules. Kidneys: Unremarkable. No suspicious masses, stones, or hydronephrosis. GI tract: Cystic structure measuring 1.3 cm anterior to a loop of small bowel without appreciable inflammatory changes (). Normal in caliber. No sign of mass or inflammation. Normal appendix (82). Vasculature: Abdominal aorta is normal in caliber. Mesenteric arteries are patent. Lymph nodes: No lymphadenopathy. Peritoneum/Abdominal Wall: Small fat containing ventral hernia (59). No sign of mass or infiltration. No free air or significant free fluid. Pelvis: Bladder is unremarkable. Reproductive organs are unremarkable. Bones: Unremarkable for age. IMPRESSION: 1. No definite acute findings to explain the patient`s symptoms. 2. Small fat containing ventral hernia. 3. 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 Please note that all CT scans at this facility use dose modulation, iterative reconstruction, and/or weight-based dosing when appropriate to reduce radiation dose to as low as reasonably achievable. Dictated by Agustin Cuevas MD @ 01/09/2025 9:02:33 PM (Electronically Signed)
[2025-01-09 19:35] LABS: Bacteria Urine Few; RBC Urine 0-2 (0-2); Squamous Epithelial Cell Urine Few (None-Few); WBC Urine 0-2 (0-5)
[2025-01-09 19:48] LABS: Lactate* 1.2 mmol/L (0.5-1.9)
[2025-01-09 19:49] LABS: Basophils Absolute Auto 0.05 K/uL (0.00-0.30); Basophils Percent Auto 0.6 % (0.0-3.0); Eosinophils Absolute Auto 0.11 K/uL (0.00-0.50); Eosinophils Percent Auto 1.4 % (0.0-7.0); Hematocrit 37.2 % (33.0-51.0); Hemoglobin* 12.2 gm/dL (12.0-16.0); Immature Granulocytes Abs Auto 0.02 K/uL (0.00-0.30); Immature Granulocytes Pct Auto 0.2 %; Lymphocytes Absolute Auto 2.04 K/uL (0.90-2.90); Lymphocytes Percent Auto 25.1 % (20-44); Mean Corpuscular HGB Conc 33 gm/dL (32-36); Mean Corpuscular Hemoglobin 26 pg (26-34); Mean Corpuscular Volume 80 fL (80-100); Monocytes Percent Auto 6.6 % (0.0-11.0); Neutrophils Absolute Auto 5.38 K/uL (1.7-7.0); Neutrophils Percent Auto 66.1 % (42.0-72.0); Platelet Count* 314 K/uL (140-440); RDW Coefficient of Variation % 13.9 % (11.5-15.5); Red Blood Count 4.68 m/uL (4.00-5.20); Slide Review Reflex No; White Blood Count* 8.14 K/uL (4.50-11.00)
[2025-01-09 20:11] LABS: Albumin* 4.9 g/dL (3.3-5.0); Chloride* 104 mmol/L (96-114); Potassium* 3.4 mmol/L (3.6-5.1); Sodium* 138 mmol/L (135-149)
[2025-01-09 20:13] LABS: Blood Urea Nitrogen* 13 mg/dL (5-24); Creatinine* 0.6 mg/dL (0.5-1.5); Est. Creatinine Clearance* 104.06; Estimated Glomerular Filt Rate 121 ml/min
[2025-01-09 20:14] LABS: Alanine Aminotransferase* 24 U/L (4-35); Alkaline Phosphatase* 68 U/L (40-150); Anion Gap 14 mEq/L (7-15); Aspartate Amino Transferase* 34 U/L (12-35); Bilirubin Direct* 0.2 mg/dL (0.0-0.5); Bilirubin Total* 0.3 mg/dL (0.1-1.5); Carbon Dioxide* 20 mmol/L (20-32); Glucose* 102 mg/dL (60-115); Lipase* 139 U/L (23-300); Total Protein* 7.7 g/dL (6.0-8.3)
--- OUTSIDE RECORDS SUMMARY | 2025-01-09 20:14 | XMS_ITS | Encounter Summary ---
Author Organization [facility] Address [address] [place] [address] Care Team Providers Care Ribbon Sweatband Operator Name Role Phone Dina Parkinson APRN C.N.PDerrell, M.S. Primary Care Pr ovider Reason for Referral * Outpatient (Routine) - Closed Specialty Diagnoses / Procedures Referred By Yoel coello Referred To Contact Diagnoses Lump In Right Breast Subareolar Procedures BI Breast Diagnostic Bilateral with Tomosynthesis BI Breast Diagnostic Right with Tomosynthesis Dina Parkinson APRN, C.N.P., M.S. [address] [place] [phone] Phone: tel: fax: [facility] Referral ID Status Reason Start Date Expiration Date Visits Re quested Visits Authorized [id number] Closed 11/26/2024 02/26/2026 1 1 NCIAL ASSOCIATE Reason for Visit * Outpatient (Routine) - Closed Specialty Diagnoses / Procedures Referred By Yoel coello Referred To Contact Diagnoses Lump In Right Breast Subareolar Procedures BI Breast Diagnostic Bilateral with Tomosynthesis BI Breast Diagnostic Right with Tomosynthesis Dina Parkinson APRN, C.N.P., M.S. [address] [place] [phone] Phone: tel: fax: [facility] Referral ID Status Reason Start Date Expiration Date Visits Re quested Visits Authorized [id number] Closed 11/26/2024 02/26/2026 1 1 Encounter Details Date Type Department Care Team (Latest Contact Info) Description 12/02/2024 6:55 AM FINANCIAL ASSOCIATE - 12/02/2024 7:35 AM FINANCIAL ASSOCIATE Hospital Encounter Department of Radiology in [place], [place] [address] [place] [address] Dina Parkinson APRN, C.N.P., M.S. [address] [place] [phone] Lump In Right Breast Subareolar Discharge Disposition: [...] How often do you attend chur or mormon services? More than 4 times per year 06/13/2021 Do you belong to any clubs o r organizations such as advent groups, unions, fraternal or athletic groups, or [...] Answer Date Recorded PHQ-2 Score 0 03/13/2023 [facility] - Occupational Stress Questionnaire Answer Date [...] your living situation today? I have a [facility] place to live 03/10/2023 Education Answer Date Recorded What is the highest level of school you have completed or the highest degree you have received? Bachelor's degree (e.g., BA, AB, BS) 04/08/2019 Comments No Sex and Gender Information Value Date Recorded Sex Assigned at Female 02/25/2018 1:35 PM CDT Legal Sex Female 2:16 PM FINANCIAL ASSOCIATE Gender Identity Female 02/25/2018 1:35 PM CDT Sexual Orientation Straight 02/25/2018 1: 35 PM CDT documented as of this encounter Medications at Time of Discharge [id number]- C (MOVIPREP) 100-7.5-2.691 gram per packet Drink [...] inpatients and all outpatients) 12/02/2024 7:31 AM FINANCIAL ASSOCIATE Lump In Right Breast Subareolar documented in this encounter Results * BI Breast Diagnostic Bilateral with Tomosynthesis (12/02/2024 7:31 AM FINANCIAL ASSOCIATE) Anatomical Region Laterality Modality Breast, Breast Imaging RST L OS, Breast Imaging ARZ LOS, Breast Imaging FLA LOS Bilateral Mammography Impressions 12/02/2024 8:14 AM FINANCIAL ASSOCIATE No mammographic or sonographic findings of malignancy. The palpable area of concern may correspond to a prominent ridge of normal breast tissue. RECOMMENDATION: Clinical Management Findings and recommendations were discussed with the patient by Dr. Almeida. ASSESSMENT: BI-RADS: 1: Negative. Narrative 12/02/2024 8:14 AM FINANCIAL ASSOCIATE EXAM: BI BREAST DIAGNOSTIC BILATERAL WITH TOMOSYNTHESIS, [...] of the outer right breast was performed. Mortgage Loan Funder normal images were saved at 10:00, 1 [...] Imaging of the outer rightbreast was performed. Mortgage Loan Funder normal images were saved at 10:00, 1cm [...] documented as of this encounter Care Teams Ribbon Sweatband Operator Relationship Specialty Start Date End Date Dina Parkinson APRN C.N.Naty, M.S. [address] [place] [phone] PCP - General Internal Medicine 06/15/16 documented as of this encounter
--- OUTSIDE RECORDS SUMMARY | 2025-01-09 20:14 | XMS_ITS | Encounter Summary ---
Author Organization [facility] Address [address] [place] [id number] Care Team Providers Care Retail Beauty Specialist Name Role Phone Dina Parkinson APRN, C.N.P., M.S. Primary Care Pr ovider Encounter Details Date Type Department Care Team (Late st Contact Info) Description 08/01/2014 Historical Ophthalmology RST OPH Dorene Bronson O.D. [address] [place] [address] Social History Tobacco Use Types Packs/Day Years Used Date Smoking Tobacco: Never Assessed Comments Unknown Sex and Gender Information Value Date Recorded Sex Assigned at Female 02/25/2018 1:35 PM CDT Legal Sex Female 2:16 PM MOLD FILLING OPERATOR Gender Identity Female 02/25/2018 1:35 PM CDT [...] (myopic astigmatism). CDM Reports - EYEGEN Id: [id number] Status: Fnl documented in this encounter Plan [...] Pending 08/22/2021 08/22/2021 08/22/2021 1 1:19 PM MOLD FILLING OPERATOR COVID19 Pending 08/27/2021 08/27/2021 08/27/2021 4 :33 PM MOLD FILLING OPERATOR COVID19 Pending 10/06/2021 10/06/2021 10/06/2021 8 :50 PM MOLD FILLING OPERATOR COVID19 10/06/2021 10/06/2021 10/26/2021 5:46 AM MOLD FILLING OPERATOR Assessment Noted Time PHQ-9 Depression Total Score: 0 02/27/20 13 10:59 AM CDT documented as of this encounter Care Teams Retail Beauty Specialist Relationship Specialty Start Date End Date Dina Parkinson APRN, C.N.P., M.S. [address] [place] [phone] PCP - General Internal Medicine 06/15/16 documented as of this encounter
--- OUTSIDE RECORDS SUMMARY | 2025-01-09 20:14 | XMS_ITS | Clinical Summary ---
Author Organization [facility] Address [address] [place] [address] Care Team Providers Care Micro Photographer Name Role Phone Dina Parkinson APRN, C.N.P., M.S. Primary Care Pr ovider Source Comments Patient records contain information from all sites at [facility]. For routine questions regarding patient records, call [phone] during business hours, M-F 8:00 AM - 5:00 PM Central Time. Record requests for emergency care only can be directed to [phone] at any time.[facility] Allergies No known active allergies Medications * This document contains information received from the source organization and may not represent a complete record from that organization. [id number] wow-[id number] b-C (MOVIPREP) 100-7.5-2.691 gram per packet Drink [...] (06/14/2021): Added automatically from request for surgery [id number] Anxiety Generalized Disorder 09/07/2020 Depression Major One Episode Moderate 09/07/2020 Assessment & Plan (10/04/2020 1:15 PM WEIGHBRIDGE OPERATOR): PHQ-9 score is 2 which has decreased [...] worsen. Assessment & Plan (09/07/2020 2:00 PM WEIGHBRIDGE OPERATOR): PHQ-9 score is 11 and ENDER score [...] (07/10/2018): The patient was admitted to the [facility] for a scheduled repeat cesearean. Her was [...] was uncomplicated. She received her care at [facility] with Dr. Anderson. Varicose Vein Leg [...] Department Care Team Description 12/02/2024 7:36 AM WEIGHBRIDGE OPERATOR - 12/02/2024 11:59 PM [facility] Hospital Encounter Department of Radiology in [place], [place] [address] [place] [address] Dina Parkinson APRN, C.N.P., M.S. Lump In Right Breast Subareolar Discharge Disposition: Home or Self Care 12/02/2024 6:55 AM WEIGHBRIDGE OPERATOR - 12/02/2024 7:35 AM [facility] Hospital Encounter Department of Radiology in [place], [place] [address] [place] [address] Dina Parkinson APRN, C.N.P., M.S. Lump In [...] How often do you attend chur or baptist services? More than 4 times per year 06/13/2021 Do you belong to any clubs o r organizations such as jehovah's witness groups, unions, fraternal or athletic groups, or [...] Answer Date Recorded PHQ-2 Score 0 03/13/2023 [facility] - Occupational Stress [...] PM CDT Legal Sex Female 2:16 PM WEIGHBRIDGE OPERATOR Gender Identity Female 02/25/2018 1:35 PM [...] inpatients and all outpatients) 12/02/2024 7:58 AM WEIGHBRIDGE OPERATOR Lump In Right Breast Subareolar BI BREAST DIAGNOSTIC BILATERAL WITH TOMOSYNTHESIS RAD - Routine (most inpatients and all outpatients) 12/02/2024 7:31 AM WEIGHBRIDGE OPERATOR Lump In Right Breast Subareolar COLONOSCOPY Routine 07/30/2023 12:44 PM CDT Anemia Iron Deficiency HPV WITH GENOTYPING, PCR, THINPREP Routine 03/13/2023 2:22 PM CDT HIV-1/-2 AG AND AB SCREEN Routine 12/17/2017 9:45 AM CDT from Last 3 Months or Most Recently Relevant to Health Maintenance Results * BI Ultrasound Breast Focused Right (12/02/2024 7:58 AM WEIGHBRIDGE OPERATOR) Anatomical Region Laterality Modality Breast, Breast Imaging RST L OS, Breast Imaging ARZ LOS, Breast Imaging FLA LOS Right Ultrasound Impressions 12/02/2024 8:14 AM WEIGHBRIDGE OPERATOR No mammographic or sonographic findings of malignancy. The palpable area of concern may correspond to a prominent ridge of normal breast tissue. RECOMMENDATION: Clinical Management Findings and recommendations were discussed with the patient by Dr. Almeida. ASSESSMENT: BI-RADS: 1: Negative. Narrative 12/02/2024 8:14 AM WEIGHBRIDGE OPERATOR EXAM: BI BREAST DIAGNOSTIC BILATERAL WITH TOMOSYNTHESIS, [...] of the outer right breast was performed. Party Host normal images were saved at 10:00, 1 [...] Imaging of the outer rightbreast was performed. Party Host normal images were saved at 10:00, 1cm [...] Diagnostic Bilateral with Tomosynthesis (12/02/2024 7:31 AM WEIGHBRIDGE OPERATOR) Anatomical Region Laterality Modality Breast, Breast Imaging RST L OS, Breast Imaging ARZ LOS, Breast Imaging FLA LOS Bilateral Mammography Impressions 12/02/2024 8:14 AM WEIGHBRIDGE OPERATOR No mammographic or sonographic findings of malignancy. The palpable area of concern may correspond to a prominent ridge of normal breast tissue. RECOMMENDATION: Clinical Management Findings and recommendations were discussed with the patient by Dr. Almeida. ASSESSMENT: BI-RADS: 1: Negative. Narrative 12/02/2024 8:14 AM WEIGHBRIDGE OPERATOR EXAM: BI BREAST DIAGNOSTIC BILATERAL WITH TOMOSYNTHESIS, [...] of the outer right breast was performed. Party Host normal images were saved at 10:00, 1 [...] Imaging of the outer rightbreast was performed. Party Host normal images were saved at 10:00, 1cm [...] was ordered in the context of a [facility] AIRPORT OPERATIONS COORDINATOR Cytology case; this result should be interpreted within the context of the AIRPORT OPERATIONS COORDINATOR cytology report. ----ADDITIONAL INFORMATION---- Testing was performed using the lea HPV assay ([employer] 03/13/2023 2:22 PM CDT 03/13/2023 4:53 PM CDT Amor Lind APRN.N.P., M.S. LAB MICROBIOLOGY - GENERAL ORDERABLES Final Result [facility] [place] [facility] [employer] [address] [place] [address], [facility] [address] [place] [address] * HIV-1/-2 Ag and Ab Screen (12/17/2017 9:45 AM CDT) HIV-1/-2 Ag and Ab Screen, S Negative Negative [facility] Comment: Negative result does not rule out HIV infection. If acute HIV infection is suspected in a high-risk individual, submit plasma specimen for HIV-1 RNA quantification test (HIVDQ) and/or HIV-2 DNA/RNA test (FHV2Q). 12/17/2017 9:45 AM CDT 12/17/2017 9:45 AM CDT us Nidhi Tomlinson APRN, CNM LAB MICROBIOLOGY - BLOO D ORDERABLES Final Result [facility] [address] [place] [address], [facility] from Last 3 Months or Most Recently Relevant to Health Maintenance Insurance [employer] Care Teams Micro Photographer Relationship Specialty Start Date End Date Dina Parkinson APRN, C.N.P., M.S. [address] [place] [phone] PCP - General Internal Medicine 06/15/16
--- OUTSIDE RECORDS SUMMARY | 2025-01-09 20:14 | XMS_ITS | Encounter Summary ---
Author Organization [facility] Address [address] [place] [id number] Care Team Providers Care Care Transition Mgr Name Role Phone Dina Parkinson APRN, C.N.PDerrell, M.S. Primary Care Pr ovider Reason for Referral * Outpatient (Routine) - Closed Specialty Diagnoses / Procedures Referred By Contac t Referred To Contact Diagnoses Lump In Right Breast Subareolar Procedures BI Ultrasound Breast Focused Right Dina Parkinson APRN, C.N.P., M.S. [address] [place] [phone] Phone: tel: fax: [facility] Referral ID Status Reason Start Date Expiration Date Visits Re quested Visits Authorized [id number] Closed 12/02/2024 03/04/2026 1 1 UTER PERIPHERAL EQUIPMENT OPERATOR Reason for Visit * Outpatient (Routine) - Closed Specialty Diagnoses / Procedures Referred By Contac t Referred To Contact Diagnoses Lump In Right Breast Subareolar Procedures BI Ultrasound Breast Focused Right Dina Parkinson APRN C.N.P., M.S. [address] [place] [phone] Phone: tel: fax: [facility] Referral ID Status Reason Start Date Expiration Date Visits Re quested Visits Authorized [id number] Closed 12/02/2024 03/04/2026 1 1 Encounter Details Date Type Department Care Team (Latest Contact Info) Description 12/02/2024 7:36 AM COMPUTER PERIPHERAL EQUIPMENT OPERATOR - 12/02/2024 11:59 PM COMPUTER PERIPHERAL EQUIPMENT OPERATOR Hospital Encounter Department of Radiology in [place], [place] [address] [place] [address] Dina Parkinson APRN, C.N.P., M.S. [address] [place] [address] Lump In Right Breast Subareolar Discharge Disposition: [...] often do you attend chur ch or gnosticism services? More than 4 times per year 06/13/2021 Do you belong to any clubs o r organizations such as rastafarian groups, unions, fraternal or athletic groups, or [...] Answer Date Recorded PHQ-2 Score 0 03/13/2023 [facility] - Occupational Stress Questionnaire Answer Date Recorded [...] PM CDT Legal Sex Female 2:16 PM COMPUTER PERIPHERAL EQUIPMENT OPERATOR Gender Identity Female 02/25/2018 1:35 PM CDT Sexual Orientation Straight 02/25/2018 1: 35 PM CDT documented as of this encounter Medications at Time of Discharge [id number]- [id number] (MOVIPREP) 100-7.5-2.691 gram per packet Drink [...] inpatients and all outpatients) 12/02/2024 7:58 AM COMPUTER PERIPHERAL EQUIPMENT OPERATOR Lump In Right Breast Subareolar documented in this encounter Results * BI Ultrasound Breast Focused Right (12/02/2024 7:58 AM COMPUTER PERIPHERAL EQUIPMENT OPERATOR) Anatomical Region Laterality Modality Breast, Breast Imaging RST L OS, Breast Imaging ARZ LOS, Breast Imaging FLA LOS Right Ultrasound Impressions 12/02/2024 8:14 AM COMPUTER PERIPHERAL EQUIPMENT OPERATOR No mammographic or sonographic findings of malignancy. The palpable area of concern may correspond to a prominent ridge of normal breast tissue. RECOMMENDATION: Clinical Management Findings and recommendations were discussed with the patient by Dr. Almeida. ASSESSMENT: BI-RADS: 1: Negative. Narrative 12/02/2024 8:14 AM COMPUTER PERIPHERAL EQUIPMENT OPERATOR EXAM: BI BREAST DIAGNOSTIC BILATERAL WITH [...] of the outer right breast was performed. Gate Guard normal images were saved at 10:00, 1 [...] Imaging of the outer rightbreast was performed. Gate Guard normal images were saved at 10:00, 1cm [...] documented as of this encounter Care Teams Care Transition Mgr Relationship Specialty Start Date End Date Dina Parkinson APRN, C.N.P., M.S. [address] [place] [phone] PCP - General Internal Medicine 06/15/16 documented as of this encounter
--- OUTSIDE RECORDS SUMMARY | 2025-01-09 20:14 | XMS_ITS | Encounter Summary ---
Author Organization [facility] Address [address] [place] [address] Care Team Providers Care Retail Sales Manager Name Role Phone Dina Parkinson APRN, C.N.P., M.S. Primary Care Pr ovider Encounter Details Date Type Department Care Team (Late st Contact Info) Description 08/01/2014 Historical Ophthalmology RST OPH Dorene Bronson O.D. [address] [place] [address] Social History Tobacco Use Types Packs/Day Years Used Date Smoking Tobacco: Never Assessed Comments Unknown Sex and Gender Information Value Date Recorded Sex Assigned at Female 02/25/2018 1:35 PM CDT Legal Sex Female 2:16 PM ASSISTED LIVING HOUSEKEEPER Gender Identity Female 02/25/2018 1:35 PM CDT Sexual Orientation Straight 02/25/2018 1: 35 PM CDT documented as of this encounter Progress Notes * Dorene Park O.D. - 08/01/2014 5:53 PM CST Contact Lens Exam MULTI-VISIT DOCUMENT This document contains multiple patient visits and is available for review in Document Viewer. CDM Reports - EYECL Id: [id number] Status: Fnl documented in this encounter Plan [...] Pending 08/22/2021 08/22/2021 08/22/2021 1 1:19 PM ASSISTED LIVING HOUSEKEEPER COVID19 Pending 08/27/2021 08/27/2021 08/27/2021 4 :33 PM ASSISTED LIVING HOUSEKEEPER COVID19 Pending 10/06/2021 10/06/2021 10/06/2021 8 :50 PM ASSISTED LIVING HOUSEKEEPER COVID19 10/06/2021 10/06/2021 10/26/2021 5:46 AM ASSISTED LIVING HOUSEKEEPER Assessment Noted Time PHQ-9 Depression Total Score: 0 02/27/20 13 10:59 AM CDT documented as of this encounter Care Teams Retail Sales Manager Relationship Specialty Start Date End Date Dina Parkinson APRN, C.N.P., M.S. [address] [place] [phone] PCP - General Internal Medicine 06/15/16 documented as of this encounter
[2025-01-09 20:18] LABS: C Reactive Protein* < 0.5 mg/dL (0.5-1.0)
== END 2025-01-09 21:59 | disposition home or self-care (01) ==
PROVIDERS: Emergency Provider Family Medicine
DX: R10.11 Right upper quadrant pain (principal)
CPT/HCPCS: 36415; 74177; 80053; 81001; 82248; 83605; 83690; 85025; 86140; 87086; 99284; Q9967